=== PATIENT | male | born 1975 | race Caucasian/White ===

== ENCOUNTER 2018-02-04 18:26 | Emergency (ER) | payer MEDICARE ==
[2018-02-04] MEDS ORDERED: HYDROmorphone 1 MG/ML CARPUJECT IVP STA (18:49)
[2018-02-04] MEDS ORDERED: SODIUM CHLORIDE 0.9% 1,000 ML IV ONE (18:49)
[2018-02-04] MEDS ORDERED: ONDANSETRON 4 MG/2 ML VIAL IVP STA (18:49)
--- NOTE | 2018-02-04 18:54 | ED Physician Documentation ---
PD HPI ABD PAIN - Stated complaint Stated Complaint: ABD PX - Chief complaint Chief Complaint: Abd Pain - History obtained from History obtained from: Patient - History of Present Illness Timing - onset: Yesterday (This is a 42-year-old gentleman with history of recurrent pancreatitis. He recently moved to the area from [place], actually the main reason would the to seek GI consultation at [facility]. Per his description he had cholecystectomy 5 months ago and does not drink alcohol. 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 He started develop epigastric pain that is squeezing since yesterday similar prior episodes of pancreatitis. He is nauseous but has not vomited. Past surgical history is notable for laparotomy for hernias, laparoscopic cholecystectomy, appendectomy.) Review of Systems Ten Systems: 10 systems reviewed and negative Constitutional: denies: Fever, Chills Nose: denies: Rhinorrhea / runny nose Cardiac: denies: Chest pain / pressure, Palpitations Respiratory: denies: Dyspnea, Cough PD PAST MEDICAL HISTORY - Past Medical History Past Medical History: Yes GI: Pancreatitis - Past Surgical History Past Surgical History: Yes General: Cholecystectomy, Appendectomy, Bowel surgery - Present Medications Home Medications: Ambulatory Orders Medication Instructions Recorded Confirmed Dexlansoprazole [Dexilant] 1 tab PO DAILY 02/04/18 02/04/18 Fenofibrate 1 cap PO DAILY 02/04/18 02/04/18 Gabapentin 1 tab PO TID 02/04/18 02/04/18 Gabapentin 300 mg PO TID #30 capsule 02/04/18 Insulin Aspart [Novolog Flexpen] 35 unit SQ TID 02/04/18 02/04/18 Insulin Degludec [Tresiba 50 units SQ DAILY 02/04/18 02/04/18 Flextouch U-100] Olanzapine [Zyprexa] 1 tab PO DAILY 02/04/18 02/04/18 Ondansetron Odt [Zofran Odt] 1 tab PO Q6HR PRN 02/04/18 02/04/18 Ondansetron Odt [Zofran] 4 mg TL Q6H PRN #10 tablet 02/04/18 Oxycodone HCl/Acetaminophen 1 - 2 each PO Q6H PRN #14 tablet 02/04/18 [Percocet 5-325 mg Tablet] amLODIPine [Norvasc] 1 tab PO DAILY 02/04/18 02/04/18 oxyCODONE [Roxicodone] 1 tab PO TID PRN 02/04/18 02/04/18 - Allergies Allergies/Adverse Reactions: Allergies Allergy/AdvReac Type Severity Reaction Status Date / Time Penicillins Allergy Hives Verified 02/04/18 18:35 - Social History Does the pt smoke?: Yes Smoking Status: Current every day smoker Does the pt drink ETOH?: No Does the pt have substance abuse?: No - Family History Family history: reports: Non contributory PD ED PE NORMAL - Vitals Vital signs reviewed: Yes - General General: Alert and oriented X 3, No acute distress - HEENT HEENT: PERRL, EOMI - Neck Neck: Supple, no meningeal sign, No bony TTP - Cardiac Cardiac: RRR, No murmur - Respiratory Respiratory: No respiratory distress, Clear bilaterally - Abdomen Abdomen: Normal bowel sounds, Soft, Non tender, Other (Well-healed laparotomy and laparoscopy scars) - Back Back: No CVA TTP, No spinal TTP - Derm Derm: Normal color, Warm and dry - Extremities Extremities: No edema, No calf tenderness / cord - Neuro Neuro: Alert and oriented X 3, Normal speech Results - Vitals Vitals: Vital Signs - 24 hr 02/04/18 02/04/18 18:30 20:43 Temperature 36.8 C Heart Rate 93 89 Respiratory 18 14 Rate Blood Pressure 110/83 H 136/87 H O2 Saturation 98 98 Oxygen O2 Source Room air - Labs Labs: Laboratory Tests 02/04/18 02/04/18 02/04/18 19:16 19:50 20:05 WBC 8.1 RBC 4.68 L Hgb 14.0 Hct 40.4 L MCV 86.3 MCH 30.0 MCHC 34.7 RDW 13.5 Plt Count 224 MPV 10.5 Neut # (Auto) 3.8 Lymph # (Auto) 3.2 [place] # (Auto) 0.9 Eos # (Auto) 0.3 Baso # (Auto) 0.0 Absolute Nucleated RBC 0.00 Nucleated RBC % 0.1 Sodium 137 Potassium 3.8 Chloride 105 Carbon Dioxide 24 Anion Gap 8.0 BUN 16 Creatinine 1.3 H Estimated GFR (MDRD) 61 L Glucose 199 H Calcium 9.3 Total Bilirubin 0.5 AST 41 ALT 33 Alkaline Phosphatase 55 Total Protein 6.3 L Albumin 3.8 Globulin 2.5 Albumin/Globulin Ratio 1.5 Lipase 96 H Urine Opiates Screen NEGATIVE Ur Oxycodone Screen POSITIVE H Urine Methadone Screen NEGATIVE Ur Propoxyphene Screen NEGATIVE Ur Barbiturates Screen NEGATIVE Ur Tricyclics Screen NEGATIVE Ur Phencyclidine Scrn NEGATIVE Ur Amphetamine Screen NEGATIVE U Methamphetamines Scrn NEGATIVE U Benzodiazepines Scrn NEGATIVE Urine Cocaine Screen NEGATIVE U Cannabinoids Screen NEGATIVE Ethyl Alcohol < 5.0 PD MEDICAL DECISION MAKING - ED course ED course: 42-year-old gentleman with history of chronic pancreatitis presents with apparent exacerbation of same but labs are reassuring and he has GI follow-up. He does need a PCP locally. Records from [facility] in were received and reviewed. He does definitely have a history of Pancreatitis, his lipase on his last admission was 1300. The admitting physician had some concerns about inconsistencies in his history regarding narcotic consumption. The patient had told the physician that his doctor was out of town however the doctor had personal knowledge that his personal physician was not out of town. - Sepsis Event Vital Signs: Vital Signs - 24 hr 02/04/18 02/04/18 18:30 20:43 Temperature 36.8 C Heart Rate 93 89 Respiratory 18 14 Rate Blood Pressure 110/83 H 136/87 H O2 Saturation 98 98 Oxygen O2 Source Room air Departure - Departure Disposition: 01 Home, Self Care Clinical Impression: Abdominal pain Qualifiers: Abdominal location: epigastric Qualified Code(s): R10.13 - Epigastric pain Condition: Good Record reviewed to determine appropriate education?: Yes Instructions: ED Abdominal Pain Unkn Cause Follow-Up: Declan العلي MD [Provider Admit Priv/Credential] - Melissa Jackson MD [Provider Admit Priv/Credential] - [facility] [Provider Group] Prescriptions: Gabapentin 300 mg PO TID #30 capsule Ondansetron Odt [Zofran] 4 mg TL Q6H PRN #10 tablet PRN Reason: Nausea / Vomiting Oxycodone HCl/Acetaminophen [Percocet 5-325 mg Tablet] 1 - 2 each PO Q6H PRN # 14 tablet PRN Reason: pain Comments: Follow-up with the transportation assistant at [facility] as scheduled. Return if worse. Discharge Date/Time: 02/04/18 20:51
[2018-02-04 19:26] LABS: EOSINOPHILS # (AUTO) 0.3 10^3/uL (0.0-0.7); LYMPHOCYTES # (AUTO) 3.2 10^3/uL (1.5-3.5); MEAN CORPUSCULAR VOLUME 86.3 fL (80.0-94.0); MONOCYTES # (AUTO) 0.9 10^3/uL (0.0-1.0); MONOCYTES % (AUTO) 10.6 %; RED CELL DISTRIBUTION WIDTH 13.5 % (12.0-15.0); WHITE BLOOD COUNT 8.1 x10^3/uL (4.8-10.8)
[2018-02-04 19:32] LABS: BASOPHILS % (AUTO) 0.4 %; EOSINOPHILS % (AUTO) 3.4 %; LYMPHOCYTES % (AUTO) 39.1 %; MEAN CORPUSCULAR HGB CONC 34.7 g/dL (32.0-36.0); MEAN PLATELET VOLUME 10.5 fL (7.4-11.4); NEUTROPHILS # (AUTO) 3.8 10^3/uL (1.5-6.6); NEUTROPHILS % (AUTO) 46.5 %; PLT - PLATELET COUNT 224 10^3/uL (130-450); RED BLOOD COUNT 4.68 10^6/uL (4.70-6.10)
[2018-02-04 20:10] LABS: ALBUMIN 3.8 g/dL (3.2-5.5); ALBUMIN/GLOBULIN RATIO 1.5 (1.0-2.2); ALKALINE PHOSPHATASE 55 IU/L (42-121); ALT ALANINE AMINOTRANSFERASE 33 IU/L (10-60); AST ASPARTATE AMINOTRANSFERASE 41 IU/L (10-42); BILIRUBIN,TOTAL 0.5 mg/dL (0.2-1.0); BUN - BLOOD UREA NITROGEN 16 mg/dL (6-20); CALCIUM 9.3 mg/dL (8.5-10.3); CARBON DIOXIDE - CO2 24 mmol/L (21-32); CHLORIDE 105 mmol/L (101-111); CREATININE 1.3 mg/dL (0.6-1.2); GFR - MDRD 61 (>89); GLUCOSE 199 mg/dL (70-100); LIPASE 96 U/L (22-51); SODIUM 137 mmol/L (135-145); TOTAL PROTEIN 6.3 g/dL (6.7-8.2)
[2018-02-04 20:13] LABS: MUDS CUTOFF CONCENTRATIONS CUTOFF CONC BELOW:
[2018-02-04] MEDS ORDERED: oxyCODONE/ACET 5/325 Prepack 4 PO STA (20:31)
[2018-02-04 20:42] LABS: AMPHETAMINE SCREEN,URINE NEGATIVE (NEGATIVE); BENZODIAZEPINES SCREEN, URINE NEGATIVE (NEGATIVE); COCAINE SCREEN URINE NEGATIVE (NEGATIVE); METHADONE SCREEN, URINE NEGATIVE (NEGATIVE); METHAMPHETAMINES SCREEN, URINE NEGATIVE (NEGATIVE); OPIATE SCREEN, URINE NEGATIVE (NEGATIVE); OXYCODONE SCREEN, URINE POSITIVE (NEGATIVE); PROPOXYPHENE SCREEN, URINE NEGATIVE (NEGATIVE); TRICYCLIC ANTIDEPRESSANT,URINE NEGATIVE (NEGATIVE)
[2018-02-04 20:45] VITALS: BP 136/87
== END 2018-02-04 20:51 | disposition home or self-care (01) ==
LOC: ED 18:26
DX: R10.13 Epigastric pain (principal); K86.1 Other chronic pancreatitis; E11.9 Type 2 diabetes mellitus without complications; F17.200 Nicotine dependence, unspecified, uncomplicated; Z79.4 Long term (current) use of insulin
CPT/HCPCS: 36415; 80053; 83690; 85025; 96361; 96374; 96375; 99283; J1170; 80306; 80320

== ENCOUNTER 2021-03-28 21:39 | Outpatient (CLI) | payer MEDICARE | END 2021-03-28 21:40 | disposition critical access hospital (66) | LOC: EMS 21:39 | DX: R04.2 Hemoptysis (principal); K92.0 Hematemesis; R10.9 Unspecified abdominal pain; G89.29 Other chronic pain | CPT/HCPCS: A0425; A0429 ==

== ENCOUNTER 2021-03-28 21:48 | Emergency (ER) | payer MEDICAID, MEDICARE ==
--- NOTE | 2021-03-28 22:04 | ED Physician Documentation ---
PD HPI ABD PAIN - Stated complaint Stated Complaint: ABD PX/VOMITING/ COUGHING UP BLOOD - Chief complaint Chief Complaint: Abd Pain - History obtained from History obtained from: Patient - History of Present Illness Timing - onset: How many hours ago (over the past 4-6 hours), Today Timing - details: Gradual onset, Still present Quality: Cramping, Aching, Sharp Location: RUQ, Epigastric Radiation: No: Chest, Lower back Improved by: No: Vomiting, Position (not impacted by position, per patient.) Worsened by: Eating. No: Breathing, Palpation Associated symptoms: Nausea, Vomiting, Hematemesis (he states he had nausea and some vomiting, then noted some red blood with emesis. Increased abd pain. He called EMS. He vomited twice enroute and Medics report just bilious without hematemesis.). No: Fever, Diarrhea Similar symptoms before: Diagnosis (History of pancreatitis chronic and takes chronic pain meds, of which he ran out yesterday. No history of ulcers/gastritis. No liver disease.) Recently seen: Clinic (seen by provider in [place] where he lives, and is here this area to get ERCP. Was to have it yesterday at [facility] but is on EliQuidis and had not had COVID test, so procedure delayed to Thursday, Apr 01 (4 days from now). He says he expected to return today to [place] so did not have more meds with him.) Review of Systems Constitutional: denies: Fever, Chills Nose: denies: Rhinorrhea / runny nose, Congestion Throat: denies: Sore throat Cardiac: denies: Chest pain / pressure Respiratory: denies: Dyspnea, Cough GI: reports: Abdominal Pain, Nausea, Vomiting, Hematemesis. denies: Abdominal Swelling, Constipation, Diarrhea, Bloody / black stool : denies: Dysuria, Frequency Neurologic: reports: Generalized weakness. denies: Focal weakness, Numbness, Altered mental status PD PAST MEDICAL HISTORY - Past Medical History Cardiovascular: Hypertension Respiratory: None Neuro: None Endocrine/Autoimmune: Type 2 diabetes GI: Pancreatitis : None HEENT: None Psych: Depression, Anxiety, Schizophrenia Musculoskeletal: Chronic back pain Derm: None - Past Surgical History Past Surgical History: Yes General: Cholecystectomy, Appendectomy, Bowel surgery - Present Medications Home Medications: Ambulatory Orders Medication Instructions Recorded Confirmed Dexlansoprazole [Dexilant] 1 tab PO DAILY 02/04/18 02/04/18 Fenofibrate 1 cap PO DAILY 02/04/18 02/04/18 Gabapentin 1 tab PO TID 02/04/18 02/04/18 Gabapentin 300 mg PO TID #30 capsule 02/04/18 Insulin Aspart [Novolog Flexpen] 35 unit SQ TID 02/04/18 02/04/18 Insulin Degludec [Tresiba 50 units SQ DAILY 02/04/18 02/04/18 Flextouch U-100] OLANZapine [Zyprexa] 1 tab PO DAILY 02/04/18 02/04/18 Ondansetron Odt [Zofran Odt] 1 tab PO Q6HR PRN 02/04/18 02/04/18 Ondansetron Odt [Zofran] 4 mg TL Q6H PRN #10 tablet 02/04/18 Oxycodone HCl/Acetaminophen 1 - 2 each PO Q6H PRN #14 tablet 02/04/18 [Percocet 5-325 mg Tablet] amLODIPine [Norvasc] 1 tab PO DAILY 02/04/18 02/04/18 oxyCODONE [Roxicodone] 1 tab PO TID PRN 02/04/18 02/04/18 HYDROmorphone [Dilaudid] 2 mg PO Q8H PRN 5 Days #15 tablet 03/29/21 Promethazine [Phenergan] 25 mg PO Q6H PRN #10 tab 03/29/21 fentaNYL [Fentanyl 75mcg patch] 1 each TD Q3D 6 Days #2 patch 03/29/21 - Allergies Allergies/Adverse Reactions: Allergies Allergy/AdvReac Type Severity Reaction Status Date / Time Penicillins Allergy Hives Verified 02/04/18 18:35 - Social History Does the pt smoke?: Yes Smoking Status: Current every day smoker Does the pt drink ETOH?: No Does the pt have substance abuse?: No - Immunizations Immunizations are current?: Yes - POLST Patient has POLST: No PD ED PE NORMAL - Vitals Vital signs reviewed: Yes (Tachycardic and hypertensive with sweating and shakiness) - General General: Alert and oriented X 3, Well developed/nourished - HEENT HEENT: Pharynx benign - Neck Neck: Supple, no meningeal sign, No adenopathy - Cardiac Cardiac: RRR (tachycardic but regular), No murmur - Respiratory Respiratory: Clear bilaterally - Abdomen Abdomen: Normal bowel sounds, Soft, Non distended, No organomegaly, Other (tender upper abd with local guarding epigastric. ) - Derm Derm: Normal color. No: Warm and dry (sweaty and flush) - Extremities Extremities: Normal ROM s pain, No edema, No calf tenderness / cord - Neuro Neuro: Alert and oriented X 3, No motor deficit, Normal speech Results - Vitals Vitals: Vital Signs - 24 hr 03/28/21 03/28/21 03/28/21 21:53 22:15 22:52 Temperature 36.5 C Heart Rate 115 H 75 112 H Respiratory 26 H 20 21 Rate Blood Pressure 151/100 H 157/136 H 193/108 H O2 Saturation 100 97 98 03/28/21 03/29/21 03/29/21 23:30 01:44 03:36 Temperature 36.0 C L Heart Rate 110 H 100 95 Respiratory 18 16 Rate Blood Pressure 196/125 H 144/89 H 141/91 H O2 Saturation 96 Oxygen O2 Source Room air - Labs Labs: Laboratory Tests 03/28/21 03/28/21 03/28/21 22:33 22:33 22:33 WBC 16.4 H RBC 4.83 Hgb 14.8 Hct 44.4 MCV 91.9 MCH 30.6 MCHC 33.3 RDW 13.8 Plt Count 289 MPV 10.9 Neut # (Auto) Not Reportable Lymph # (Auto) Not Reportable [place] # (Auto) Not Reportable Eos # (Auto) Not Reportable Baso # (Auto) Not Reportable Absolute Nucleated RBC Not Reportable Total Counted 100 Band Neuts % (Manual) 0 Abnorm Lymph % (Manual) 0 Nucleated RBC % Not Reportable Neutrophils # (Manual) 9.5 H Lymphocytes # (Manual) 4.4 H Monocytes # (Manual) 2.5 H Eosinophils # (Manual) 0.0 Basophils # (Manual) 0.0 Differential Comment MANUAL DIFFERENTIAL WBC Morphology NORMAL APPEARANCE Platelet Estimate NORMAL (130-450,000) Platelet Morphology NORMAL APPEARANCE RBC Morph Micro Appear NORMAL APPEARANCE PT 13.8 H INR 1.2 APTT 33.4 H Sodium 134 L Potassium 3.6 Chloride 101 Carbon Dioxide 20 L Anion Gap 13.0 BUN 16 Creatinine 0.9 Estimated GFR (MDRD) 92 Glucose 181 H Calcium 9.4 Total Bilirubin 0.9 AST 14 ALT 12 Alkaline Phosphatase 77 Total Protein 6.8 Albumin 4.2 Globulin 2.6 Albumin/Globulin Ratio 1.6 Lipase 95 H Urine Color Urine Clarity Urine pH Ur Specific [place] Urine Protein Urine Glucose (UA) Urine Ketones Urine Occult Blood Urine Nitrite Urine Bilirubin Urine Urobilinogen Ur Leukocyte Esterase Urine RBC Urine WBC Ur Squamous Epith Cells Urine Crystals Urine Bacteria Urine Casts Ur Microscopic Review Urine Culture Comments Nasal Adenovirus (PCR) Nasal B. parapertussis DNA (PCR) Nasal Coronavir 229E PCR Nasal Coronavir HKU1 PCR Nasal Coronavir NL63 PCR Nasal Coronavir OC43 PCR Nasal Enterovir/Rhinovir PCR Nasal Influenza B PCR Nasal Influenza A PCR Nasal Parainfluen 1 PCR Nasal Parainfluen 2 PCR Nasal Parainfluen 3 PCR Nasal Parainfluen 4 PCR Nasal RSV (PCR) Nasal B.pertussis DNA PCR Nasal C.pneumoniae (PCR) Shahzad Human Metapneumo PCR Nasal M.pneumoniae (PCR) Nasal SARS-CoV-2 (PCR) 03/28/21 03/29/21 03/29/21 23:01 01:17 02:05 WBC RBC Hgb 13.9 L Hct 41.7 L MCV MCH MCHC RDW Plt Count MPV Neut # (Auto) Lymph # (Auto) [place] # (Auto) Eos # (Auto) Baso # (Auto) Absolute Nucleated RBC Total Counted Band Neuts % (Manual) Abnorm Lymph % (Manual) Nucleated RBC % Neutrophils # (Manual) Lymphocytes # (Manual) Monocytes # (Manual) Eosinophils # (Manual) Basophils # (Manual) Differential Comment WBC Morphology Platelet Estimate Platelet Morphology RBC Morph Micro Appear PT INR APTT Sodium Potassium Chloride Carbon Dioxide Anion Gap BUN Creatinine Estimated GFR (MDRD) Glucose Calcium Total Bilirubin AST ALT Alkaline Phosphatase Total Protein Albumin Globulin Albumin/Globulin Ratio Lipase Urine Color DARK YELLOW Urine Clarity CLEAR Urine pH 6.0 Ur Specific [place] 1.025 Urine Protein 30 H Urine Glucose (UA) 100 H Urine Ketones 15 H Urine Occult Blood NEGATIVE Urine Nitrite NEGATIVE Urine Bilirubin NEGATIVE Urine Urobilinogen 0.2 (NORMAL) Ur Leukocyte Esterase NEGATIVE Urine RBC 0-5 Urine WBC 0-3 Ur Squamous Epith Cells RARE Squamous Urine Crystals 6-10 Calcium Oxalate Urine Bacteria None Seen Urine Casts 0-2 Hyaline Casts Ur Microscopic Review INDICATED Urine Culture Comments NOT INDICATED Nasal Adenovirus (PCR) NOT DETECTED Nasal B. parapertussis DNA (PCR) NOT DETECTED Nasal Coronavir 229E PCR NOT DETECTED Nasal Coronavir HKU1 PCR NOT DETECTED Nasal Coronavir NL63 PCR NOT DETECTED Nasal Coronavir OC43 PCR NOT DETECTED Nasal Enterovir/Rhinovir PCR NOT DETECTED Nasal Influenza B PCR NOT DETECTED Nasal Influenza A PCR NOT DETECTED Nasal Parainfluen 1 PCR NOT DETECTED Nasal Parainfluen 2 PCR NOT DETECTED Nasal Parainfluen 3 PCR NOT DETECTED Nasal Parainfluen 4 PCR NOT DETECTED Nasal RSV (PCR) NOT DETECTED Nasal B.pertussis DNA PCR NOT DETECTED Nasal C.pneumoniae (PCR) NOT DETECTED Shahzad Human Metapneumo PCR NOT DETECTED Nasal M.pneumoniae (PCR) NOT DETECTED Nasal SARS-CoV-2 (PCR) NOT DETECTED PD MEDICAL DECISION MAKING - ED course Complexity details: re-evaluated patient (I think he had a fair element of withdrawal given that he had run out of his medicines yesterday and is improved with IV pain medicine and antiemetics. No doubt some element of gastritis with the vomiting. Does not seem to have ongoing bleeding at this time.), considered differential (Had vomiting with hematemesis. Vomiting on route by medics showed no blood. No further vomiting here. Hemoglobin is stable over several hours with minimal drop. Vitals are good. Improved symptoms with pain medicine.), d/w patient ED course: He has his ERCP and endoscopy on Thursday which is in 3 more days. He will then be returning home to . I wrote him a prescription for his usual pain medicines to last 5 days. He will be scoped in 3 days anyway so I did not see here urgent reason for upper endoscopy sooner. Seems to be stable. Departure - Departure Disposition: 01 Home, Self Care Clinical Impression: Upper abdominal pain, Acute upper GI bleeding, Chronic narcotic use Chronic pancreatitis Qualifiers: Pancreatitis type: unspecified pancreatitis type Qualified Code(s): K86.1 - Other chronic pancreatitis Condition: Stable Record reviewed to determine appropriate education?: Yes Instructions: ED Bleed UGI Stable Prescriptions: HYDROmorphone [Dilaudid] 2 mg PO Q8H PRN 5 Days #15 tablet PRN Reason: Pain fentaNYL [Fentanyl 75mcg patch] 1 each TD Q3D 6 Days #2 patch Promethazine [Phenergan] 25 mg PO Q6H PRN #10 tab PRN Reason: Nausea / Vomiting Comments: Small frequent fluids and bland food over the next few days. 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 Continue your omeprazole and actually increase it to twice daily for the next 2 weeks. Continue with your pain medication regimen of the fentanyl 75 mcg patch changed every 3 days and the hydrocodone [place] oral Dilaudid 2 mg 3 times a day. I think some of your symptoms today were some opioid withdrawal because of running out of a couple of your medicines in the last day. Also the vomiting would have flared up some of your pancreatitis and irritated your stomach with the vomiting, leading to some bleeding (gastritis). Your blood count and vital signs are good and have remained stable over the several hours you are here. Continue with your endoscopy and ERCP as planned on Thursday. Return to the ER if vomiting again despite medication or uncontrolled pain or lightheaded or other concerns. You should expect some slightly dark stool for a day or 2 but then that should dissipate and return to normal. I transmitted your scripts to [facility] in [place]. Discharge Date/Time: 03/29/21 03:25
[2021-03-28] MEDS ORDERED: HYDROmorphone 1 MG/ML CARPUJECT IVP STA ×2 (22:17→22:49)
[2021-03-28] MEDS ORDERED: fentaNYL 50 MCG PATCH TOP STA (22:18)
[2021-03-28] MEDS ORDERED: ONDANSETRON 4 MG/2 ML VIAL IVP STA (22:20)
[2021-03-28] MEDS ORDERED: FAMOTIDINE 20 MG/2 ML VIAL IVP STA (22:20)
[2021-03-28 22:48] LABS: BASOPHILS % (AUTO) 0.5 %; EOSINOPHILS % (AUTO) 1.2 %; HCT - HEMATOCRIT 44.4 % (42.0-52.0); HGB - HEMOGLOBIN 14.8 g/dL (14.0-18.0); LYMPHOCYTES % (AUTO) 24.6 %; MEAN CORPUSCULAR HEMOGLOBIN 30.6 pg (27.0-31.0); MEAN CORPUSCULAR HGB CONC 33.3 g/dL (32.0-36.0); MEAN CORPUSCULAR VOLUME 91.9 fL (80.0-94.0); MEAN PLATELET VOLUME 10.9 fL (7.4-11.4); MONOCYTES % (AUTO) 12.7 %; NEUTROPHILS % (AUTO) 60.1 %; PLT - PLATELET COUNT 289 10^3/uL (130-450); RED BLOOD COUNT 4.83 10^6/uL (4.70-6.10); RED CELL DISTRIBUTION WIDTH 13.8 % (12.0-15.0); WHITE BLOOD COUNT 16.4 x10^3/uL (4.8-10.8)
[2021-03-28 22:51] LABS: INR 1.2 (0.8-1.2); PT - PROTHROMBIN TIME 13.8 secs (9.9-12.6)
[2021-03-28 22:55] LABS: ABNORMAL LYMPHS % (MANUAL) 0 %; BAND NEUTROPHILS % (MANUAL) 0 %
[2021-03-28 22:58] LABS: PARTIAL THROMBOPLASTIN TIME 33.4 secs (24.9-33.3)
[2021-03-28 23:00] LABS: ALBUMIN 4.2 g/dL (3.2-5.5); ALBUMIN/GLOBULIN RATIO 1.6 (1.0-2.2); BILIRUBIN,TOTAL 0.9 mg/dL (0.2-1.0); CALCIUM 9.4 mg/dL (8.5-10.3); CREATININE 0.9 mg/dL (0.6-1.2); POTASSIUM 3.6 mmol/L (3.5-5.0); TOTAL PROTEIN 6.8 g/dL (6.7-8.2)
[2021-03-28 23:12] LABS: DIFFERENTIAL COMMENT MANUAL DIFFERENTIAL; LYMPHOCYTES # (MANUAL) 4.4 10^3/uL (1.5-3.5); LYMPHOCYTES % (MANUAL) 27 %; MONOCYTES # (MANUAL) 2.5 10^3/uL (0.0-1.0); NEUTROPHILS # (MANUAL) 9.5 10^3/uL (1.5-6.6); PLATELET ESTIMATE, MANUAL NORMAL (130-450,000) (NORMAL); PLATELET MORPHOLOGY NORMAL APPEARANCE (NORMAL); RBC MORPHOLOGY (MULTIPLE) NORMAL APPEARANCE (NORMAL); WBC MORPHOLOGY (MULTIPLE) NORMAL APPEARANCE (NORMAL)
[2021-03-29 00:29] LABS: B. PARAPERTUSSIS- RESP PCR PAN NOT DETECTED; B. PERTUSSIS- RESP PCR PANEL NOT DETECTED; C. PNEUMONIAE- RESP PCR PANEL NOT DETECTED; CORONAVIRUS 229E-RESP PCR NOT DETECTED; CORONAVIRUS HKU1-RESP PCR NOT DETECTED; CORONAVIRUS NL63-RESP PCR NOT DETECTED; CORONAVIRUS OC43-RESP PCR NOT DETECTED; HUMAN METAPNEUMOVIRUS NOT DETECTED; INFLUENZA A- RESP PCR PANEL NOT DETECTED; INFLUENZA B - RESP PCR PANEL NOT DETECTED; M. PNEUMONIAE- RESP PCR PANEL NOT DETECTED; PARAINFLUENZA VIRUS 1 NOT DETECTED; PARAINFLUENZA VIRUS 2 NOT DETECTED; PARAINFLUENZA VIRUS 3 NOT DETECTED; PARAINFLUENZA VIRUS 4 NOT DETECTED; RHINOVIRUS/ENTEROVIRUS NOT DETECTED; RSV- RESP PCR PANEL NOT DETECTED; SARS-CoV-2 -RESP PCR PANEL NOT DETECTED
[2021-03-29] MEDS ORDERED: HYDROmorphone 1 MG/ML CARPUJECT IVP STA (01:00)
[2021-03-29] MEDS ORDERED: SODIUM CHLORIDE 0.9% 1,000 ML IV STA (01:16)
[2021-03-29 01:23] LABS: HCT - HEMATOCRIT 41.7 % (42.0-52.0); HGB - HEMOGLOBIN 13.9 g/dL (14.0-18.0)
[2021-03-29 02:24] LABS: GLUCOSE, URINE (UA) 100 mg/dL (NEGATIVE); KETONES,URINE (UA) 15 mg/dL (NEGATIVE); LEUKOCYTE ESTERASE, URINE NEGATIVE (NEGATIVE); NITRITE,URINE NEGATIVE (NEGATIVE); OCCULT BLOOD,URINE NEGATIVE (NEGATIVE); PROTEIN,URINE 30 mg/dL (NEGATIVE); UROBILINOGEN,URINE 0.2 (NORMAL) E.U./dL (NORMAL)
[2021-03-29 02:27] LABS: BILIRUBIN,URINE NEGATIVE (NEGATIVE); CLARITY,URINE CLEAR (CLEAR); ICTOTEST,URINE NEGATIVE
[2021-03-29 02:34] LABS: BACTERIA,URINE None Seen /HPF (None Seen); CASTS, URINE 0-2 Hyaline Casts /LPF; CRYSTALS,URINE 6-10 Calcium Oxalate /LPF; RBC,URINE 0-5 /HPF (0-5); SQUAMOUS EPITHELIAL CELL,UR RARE Squamous (<= Few); WBC,URINE 0-3 /HPF (0-3)
[2021-03-29] MEDS ORDERED: oxyCODONE/ACET 5/325 Prepack 4 PO STA (02:53)
[2021-03-29 03:39] VITALS: BP 141/91
== END 2021-03-29 03:25 | disposition home or self-care (01) ==
LOC: EDUNIT# → SUPCPDRO 21:48 → ED 21:48
DX: R10.10 Upper abdominal pain, unspecified (principal); K92.2 Gastrointestinal hemorrhage, unspecified; Z79.891 Long term (current) use of opiate analgesic; K86.1 Other chronic pancreatitis; K86.81 Exocrine pancreatic insufficiency; F17.200 Nicotine dependence, unspecified, uncomplicated; Z20.822 Contact with and (suspected) exposure to COVID-19
CPT/HCPCS: 36415; 80053; 81001; 83690; 85014; 85018; 85025; 85610; 85730; 87631; 96374; 96375; 96376; 99284; A9270; J1170; 0202U; 81003; 87086